=== PATIENT | male | born 1945 | race Caucasian/White ===

== ENCOUNTER 2017-02-03 21:57 | Emergency (ER) | payer MEDICARE, OTHER, MEDICAID ==
[2017-02-03 22:05] VITALS: BP 142/75
--- NOTE | 2017-02-03 22:55 | EDM.PDOC ---
ED HPI GENERAL MEDICAL PROBLEM - General Chief Complaint: Abdominal Pain Stated Complaint: AMBULANCE Time Seen by Provider: 02/03/17 22:45 Source of Information: Reports: Patient History Limitations: Reports: No Limitations - History of Present Illness INITIAL COMMENTS - FREE TEXT/NARRATIVE: This 71 yo male patient reports to the ED by [facility] with an abdominal hernia that got much worse over the past 2-3 hours. The patient reports pain rated at a 9or10/10 at the time of presentation. The patient reports he has had a hernia for a long time, but it has never gotten like this. Onset: Today Onset Date: 02/03/17 Onset Time: 20:00 Duration: Constant Location: Reports: Abdomen Quality: Reports: Ache, Sharp Severity: Moderate Improves with: Reports: None Worsens with: Reports: None Associated Symptoms: Reports: No Other Symptoms Lower Abdominal Pain Score (Numeric/FACES): 10 - Related Data Allergies Allergy/AdvReac Type Severity Reaction Status Date / Time pantoprazole sodium Allergy Airway Verified 09/03/16 00:06 [From Protonix] Tightness Home Meds: Home Meds Folic Acid [Folic Acid] 1 mg PO DAILY 12/25/13 [History] Furosemide [Furosemide] 20 mg PO BID 12/25/13 [History] Lactulose [Lactulose] 15 ml PO DAILY 12/25/13 [History] Magnesium Oxide 500 mg PO BID 12/25/13 [History] Omeprazole [Omeprazole] 20 mg PO DAILY 12/25/13 [History] Spironolactone [Spironolactone] 50 mg PO DAILY 12/25/13 [History] Calcium Carbonate/Vitamin D3 [Calcium 600 + Vit D Tablet] 1 each PO BID [History] Multivit with Calcium,Iron,Min [Therapeutic M] 1 each PO DAILY 08/06/14 [History ] Clotrimazole [Clotrimazole] 1 applic TOP BID PRN 07/13/16 [History] Bisacodyl [Dulcolax] 10 mg PO DAILY PRN 07/18/16 [History] Propranolol [Inderal] 1 tab PO BID 02/03/17 [History] Past Medical History Cardiovascular History: Reports: Hypertension Gastrointestinal History: Reports: Cirrhosis, GERD Other Gastrointestinal History: umbil. hernia Genitourinary History: Reports: Other (See Below) Other Genitourinary History: hepatic encephalopacy, cirrhosis Musculoskeletal History: Reports: Other (See Below) Other Musculoskeletal History: fibromyalgia Psychiatric History: Reports: Addiction Endocrine/Metabolic History: Reports: Hypothyroidism Hematologic History: Reports: Anemia, Bleeding Disorder, Blood Transfusion(s), Folic Acid Dermatologic History: Reports: Other (See Below) Other Dermatologic History: Dermatitis to [place] area. - Infectious Disease History Infectious Disease History: Reports: Chicken Pox, Measles, Mumps, Other (See Below) Other Infectious Disease History: malaria - Past Surgical History Musculoskeletal Surgical History: Reports: Arthroscopic Knee Social & Family History - Family History Family Medical History: Noncontributory - Tobacco Use Smoking Status *Q: Unknown Ever Smoked Years of Tobacco use: 3 Packs/Tins Daily: 0.5 Second Hand Smoke Exposure: No - Caffeine Use Caffeine Use: Reports: Coffee - Alcohol Use Days Per Week of Alcohol Use: 0 - Recreational Drug Use Recreational Drug Use: No ED ROS GENERAL - Review of Systems Review Of Systems: ROS reveals no pertinent complaints other than HPI. ED EXAM, GI/ABD - Physical Exam Exam: See Below Exam Limited By: No Limitations General Appearance: Alert, WD/WN, Moderate Distress Ears: Normal External Exam, Normal Canal, Hearing Grossly Normal, Normal TMs Nose: Normal Inspection, Normal Mucosa, No Blood Throat/Mouth: Normal Inspection, Normal Lips, Normal Teeth, Normal Gums, Normal Oropharynx, Normal Voice, No Airway Compromise Head: Atraumatic, Normocephalic Neck: Normal Inspection, Supple, Non-Tender, Full Range of Motion Respiratory/Chest: No Respiratory Distress, Lungs Clear, Normal Breath Sounds, No Accessory Muscle Use, Chest Non-Tender Cardiovascular: Normal Peripheral Pulses, Regular Rate, Rhythm, No Edema, No Gallop, No JVD, No Murmur, No Rub GI/Abdominal: Normal Bowel Sounds, Tenderness, Distention (over a large umbilical hernia firm to touch not reducable.), Rigidity (Male) Exam: Deferred Rectal (Males) Exam: Deferred Back Exam: Normal Inspection, Full Range of Motion, NT Extremities: Normal Inspection, Normal Range of Motion, Non-Tender, Normal Capillary Refill, No Pedal Edema Neurological: Alert, Oriented, CN II-XII Intact, Normal Cognition, Normal Gait, Normal Reflexes, No Motor/Sensory Deficits Psychiatric: Normal Affect, Normal Mood Skin Exam: Warm, Dry, Intact, Normal Color, No Rash Lymphatic: No Adenopathy Course - Vital Signs Last Recorded V/S: Last Vital Signs Temp 35.7 C 02/03/17 22:04 Pulse 58 L 02/03/17 22:04 Resp 20 02/03/17 22:04 BP 142/75 H 02/03/17 22:04 Pulse Ox 95 02/03/17 22:04 - Orders/Labs/Meds Orders: Active Orders 24 hr Category Date Time Status COMPREHENSIVE METABOLIC PN,CMP [CHEM] Urgent Lab 02/03/17 23:23 Received UA W/MICROSCOPIC [URIN] Stat Lab 02/03/17 23:26 Received Labs: Laboratory Tests 02/03/17 Range/Units 23:23 WBC 6.0 (5.0-10.0) 10^3/uL RBC 2.91 L (4.6-6.2) 10^6/uL Hgb 9.1 L (14.0-18.0) g/dL Hct 26.5 L (40.0-54.0) % MCV 91.1 (80-100) fL MCH 31.3 (27.0-34.0) pg MCHC 34.3 (33.0-35.0) g/dL Plt Count 93 L (150-450) 10^3/uL Neut % (Auto) 55.5 (42.2-75.2) % Lymph % (Auto) 27.5 (20.5-50.1) % Woods % (Auto) 11.9 H (2-8) % Eos % (Auto) 4.9 H (1.0-3.0) % Baso % (Auto) 0.2 (0.0-1.0) % Departure - Departure Time of Disposition: 23:51 Disposition: DC/Tfer to [facility] 02 Condition: poor Clinical Impression: Umbilical hernia with obstruction but no gangrene - Discharge Information Forms: ED Department Discharge, Interfacility Transfer EMTALA Care Plan Goals: Discussed the examination and CT results with Kaitlin Solano. Dr. Jaramillo accepted the patient for continued evaluation and further management. The patient will be transported by [facility]. - My Orders Last 24 Hours: My Active Orders 02/03/17 23:23 COMPREHENSIVE METABOLIC PN,CMP [CHEM] Urgent 02/03/17 23:26 UA W/MICROSCOPIC [URIN] Stat - Assessment/Plan Last 24 Hours: My Active Orders 02/03/17 23:23 COMPREHENSIVE METABOLIC PN,CMP [CHEM] Urgent 02/03/17 23:26 UA W/MICROSCOPIC [URIN] Stat
[2017-02-03] MEDS ORDERED: Morphine 2 MG/ML Syringe IVPUSH ONE (23:53)
== END 2017-02-04 00:18 ==
LOC: DL.ED 21:57
DX: K42.0 Umbilical hernia with obstruction, without gangrene (principal); I10 Essential (primary) hypertension; K21.9 Gastro-esophageal reflux disease without esophagitis; E03.9 Hypothyroidism, unspecified; Z86.2 Personal history of diseases of the blood and blood-forming organs and certain disorders involving the immune mechanism; Z88.8 Allergy status to other drugs, medicaments and biological substances; Z79.899 Other long term (current) drug therapy
CPT/HCPCS: 36415; 74176; 80053; 81001; 85025; 96374; 99283; 99284; J2270